=== PATIENT | female | born 2000 | race Caucasian/White ===

== ENCOUNTER 2022-01-31 10:20 | Emergency (ER) | payer MEDICAID ==
[~2022-01-31] VITALS: Ht 170.2 cm; Wt 75.1 kg
[2022-01-31] MEDS ORDERED: CEPHALEXIN500 M1 PO (10:36)
[2022-01-31] MEDS ORDERED: YAZ 28 3 MG-0.01 TAB PO (10:36)
[2022-01-31] MEDS ORDERED: TOPAMAX25 MG PO (10:36)
[2022-01-31 11:10] LABS: BASO # 0.05 K/mm3 (0.02-0.10); EOS # 0.06 K/mm3 (0.04-0.40); EOS % 1.1 % (0.1-4.0); HEMATOCRIT 41.5 % (35.0-45.0); HEMOGLOBIN 14.2 g/dL (12.0-15.0); LYMPH# 1.18 K/mm3 (1.20-3.40); MEAN CELL VOLUME 89 fl (78-95); MEAN CORPUSCULAR HEMOGLOBIN 30 pg (26-32); MEAN CORPUSCULAR HGB CONC 34 g/dL (33-37); MEAN PLATELET VOLUME 10.1 fl (7.4-10.4); MONO # 0.46 K/mm3 (0.10-0.60); NEU # 3.91 K/mm3 (1.40-6.50); PLATELET COUNT 316 K/mm3 (130-400); RED BLOOD COUNT 4.68 M/mm3 (4.10-5.30); WHITE BLOOD COUNT 5.7 K/mm3 (4.8-10.8)
[2022-01-31 11:21] LABS: ALBUMIN 4.2 g/dL (3.5-5.0)
[2022-01-31 11:22] LABS: POTASSIUM 3.6 mmol/L (3.5-5.1)
[2022-01-31 11:23] LABS: CALCIUM 9.6 mg/dL (8.3-10.5)
[2022-01-31 11:24] LABS: TOTAL PROTEIN 7.7 g/dL (6.4-8.3)
[2022-01-31 11:26] LABS: TOTAL BILIRUBIN 0.5 mg/dL (0.2-1.2)
[2022-01-31 12:29] VITALS: BP 143/92
== END 2022-01-31 12:25 | disposition home or self-care (01) ==
LOC: ED 10:20
PROVIDERS: Family Medicine
DX: K59.00 Constipation, unspecified (principal); Z28.310 Unvaccinated for COVID-19